=== PATIENT | female | born 1945 | race Caucasian/White ===

== ENCOUNTER 2018-05-07 10:57 | Day surgery (SDC) | payer MEDICARE, OTHER ==
[~2018-05-07 10:57] MED LIST: EPHEDrine SULFATE 50 MG/5 ML SYG
[2018-05-07 13:06] LABS: POTASSIUM 4.6 mmol/L (3.5-5.1)
[2018-05-07] MEDS ORDERED: MIDAZOLAM 1 MG/ML 2 ML INJ (15:17)
[2018-05-07] MEDS ORDERED: PROPOFOL 20 ML (15:17)
[2018-05-07] MEDS ORDERED: LIDOCAINE 2% (SDV) 5 ML INJ (15:17)
[2018-05-07] MEDS ORDERED: FENTAnyl 50 MCG/ML VIAL (15:27)
[2018-05-07] MEDS ORDERED: CEFAZOLIN 1 GM INJ (15:28)
[2018-05-07] MEDS ORDERED: ONDANSETRON 4 MG INJ (15:29)
[2018-05-07] MEDS ORDERED: DEXAMETHASONE 4 MG/ML 1 ML INJ (15:29)
[2018-05-07] MEDS ORDERED: ACETAMINOPHEN 1000MG/100ML IV 100 ML (16:29)
[2018-05-07] MEDS ORDERED: HYDROCODONE/APAP (7.5/325) TAB PO (16:30)
[2018-05-07] MEDS ORDERED: PROCHLORPERAZINE 10 MG INJ IV (17:00)
[2018-05-07] MEDS ORDERED: DIPHENHYDRAMINE 50 MG INJ IV (17:00)
[2018-05-07] MEDS ORDERED: ONDANSETRON 4 MG INJ IV (17:00)
[2018-05-07] MEDS ORDERED: MEPERIDINE 25 MG INJ IV (17:00)
[2018-05-07] MEDS ORDERED: FENTAnyl 50 MCG/ML VIAL IV (17:00)
[2018-05-07] MEDS ORDERED: OXYCODONE/ACETAMINOPHEN (5/325) TAB PO (17:00)
[2018-05-07] MEDS ORDERED: HYDROmorphONE 1 MG/5 ML IV SYRINGE IV (17:00)
== END 2018-05-07 18:55 | disposition home or self-care (01) ==
LOC: SDS 10:57
DX: C50.911 Malignant neoplasm of unspecified site of right female breast (principal); I25.10 Atherosclerotic heart disease of native coronary artery without angina pectoris; E78.5 Hyperlipidemia, unspecified; I10 Essential (primary) hypertension
CPT/HCPCS: 19120; 71045; 84132; 88307; 93005

== ENCOUNTER 2018-06-12 06:10 | Day surgery (SDC) | payer MEDICARE, OTHER ==
[~2018-06-12 06:10] MED LIST changes: +CEFAZOLIN 2 GM/50 ML (PMX) 50 ML IVPB; -EPHEDrine SULFATE 50 MG/5 ML SYG; +SOD CHLORIDE 0.9% 1,000 ML IV
[2018-06-12 08:03] LABS: ADD MAN DIFF? NO
[2018-06-12 08:16] LABS: BASOPHIL # 0.1 10^3/ul (0.0-0.1); BASOPHILS % 0.7 % (0.0-2.0); EOSINOPHILS # 0.1 10^3/ul (0.0-0.5); EOSINOPHILS % 1.7 % (0.0-7.0); HEMATOCRIT 38.1 % (37.0-47.0); HEMOGLOBIN 12.7 g/dl (12.0-16.0); LYMPHOCYTES # 2.1 10^3/ul (0.8-2.9); LYMPHOCYTES % 26.8 % (15.0-51.0); MEAN CORPUSCULAR HEMOGLOBIN 29.2 pg (29.0-33.0); MEAN CORPUSCULAR HGB CONC 33.3 g/dl (32.0-37.0); MEAN CORPUSCULAR VOLUME 87.6 fl (82.0-101.0); MEAN PLATELET VOLUME 11.6 fl (7.4-10.4); MONOCYTE # 0.5 10^3/ul (0.3-0.9); MONOCYTES % 6.6 % (0.0-11.0); NEUTROPHIL # 4.9 10^3/ul (1.6-7.5); NEUTROPHILS % 63.8 % (39.0-77.0); PLATELET COUNT 230 10^3/UL (140-415); RED BLOOD COUNT 4.35 10^6/ul (4.20-5.40); RED CELL DISTRIBUTION WIDTH 13.6 % (11.5-14.5)
[2018-06-12 08:16] LABS: WHITE BLOOD COUNT 7.7 10^3/ul (4.8-10.8)
[2018-06-12 08:25] LABS: PROTIME 13.3 Sec (11.9-14.9)
[2018-06-12 08:39] LABS: PARTIAL THROMBOPLASTIN TIME 38.3 Sec (25.0-35.0)
[2018-06-12 08:44] LABS: ALANINE AMINOTRANSFERASE 27 IU/L (13-69); ALBUMIN 4.2 g/dl (3.3-4.9); ALBUMIN/GLOBULIN RATIO 1.23; ALKALINE PHOSPHATASE 79 IU/L (42-121); ANION GAP 11 (8-16); ASPARTATE AMINO TRANSFERASE 26 IU/L (15-46); BILIRUBIN,INDIRECT 0.5 mg/dl (0-1.1); BILIRUBIN,TOTAL 0.5 mg/dl (0.2-1.3); BLOOD UREA NITROGEN 15 mg/dl (7-20); CALCIUM 9.2 mg/dl (8.4-10.2); CARBON DIOXIDE 25 mmol/L (21-31); CHLORIDE 111 mmol/L (97-110); CREATININE 0.96 mg/dl (0.44-1.00); GLUCOSE 113 mg/dl (70-220); POTASSIUM 4.3 mmol/L (3.5-5.1); SODIUM 143 mmol/L (135-144); TOTAL PROTEIN 7.6 g/dl (6.1-8.1)
[2018-06-12] MEDS ORDERED: LIDOCAINE 2% (SDV) 5 ML INJ (10:43)
[2018-06-12] MEDS ORDERED: METOCLOPRAMIDE 10 MG INJ (10:43)
[2018-06-12] MEDS ORDERED: PROPOFOL 20 ML (10:43)
[2018-06-12] MEDS ORDERED: ONDANSETRON 4 MG INJ (10:43)
[2018-06-12] MEDS ORDERED: CEFAZOLIN 1 GM INJ (10:43)
[2018-06-12] MEDS ORDERED: MEPERIDINE 100 MG INJ (10:43)
[2018-06-12] MEDS ORDERED: FENTAnyl 50 MCG/ML VIAL IV ×3 (11:00)
[2018-06-12] MEDS ORDERED: ONDANSETRON 4 MG INJ IV (11:00)
[2018-06-12] MEDS ORDERED: DIPHENHYDRAMINE 50 MG INJ IV (11:00)
[2018-06-12] MEDS ORDERED: LABETALOL HCL 20MG INJ IV (11:00)
[2018-06-12] MEDS ORDERED: OXYCODONE/ACETAMINOPHEN (5/325) TAB PO (11:00)
[2018-06-12] MEDS ORDERED: METOCLOPRAMIDE 10 MG INJ IV (11:00)
[2018-06-12] MEDS ORDERED: MEPERIDINE 25 MG INJ IV (11:00)
[2018-06-12] MEDS ORDERED: MIDAZOLAM 1 MG/ML 2 ML INJ IV (11:00)
[2018-06-12] MEDS ORDERED: EPHEDrine SULFATE 50 MG/5 ML SYG IV (11:00)
[2018-06-12] MEDS ORDERED: hydrALAzine 20 MG INJ IV (11:00)
[2018-06-12] MEDS ORDERED: HYDROmorphONE 1 MG/5 ML IV SYRINGE IV ×3 (11:00)
[2018-06-12] MEDS ORDERED: ATROPINE 1 MG/10 ML SYRINGE (11:13)
[2018-06-12] MEDS ORDERED: EPHEDrine 25 MG/5 ML SYG (11:13)
[2018-06-12] MEDS: ISOSULFAN BLUE 1% 5 ML INJ SC (11:40)
[2018-06-12] MEDS: OXYCODONE/ACETAMINOPHEN (5/325) TAB PO (13:47)
== END 2018-06-12 14:30 | disposition home or self-care (01) ==
LOC: SDS 06:10
DX: C50.911 Malignant neoplasm of unspecified site of right female breast (principal); I25.10 Atherosclerotic heart disease of native coronary artery without angina pectoris; I10 Essential (primary) hypertension; E78.5 Hyperlipidemia, unspecified
CPT/HCPCS: 38500; 71045; 80053; 85025; 85610; 85730; 88307; 88331; 88342; 93005